=== PATIENT | female | born 2000 | race African-American/Black ===

== ENCOUNTER 2020-03-22 23:30 | Observation (INO) | payer MEDICAID ==
[~2020-03-22] VITALS: Ht 162.6 cm; Wt 68.5 kg
[2020-03-23 01:27] LABS: CLARITY URINE CLEAR (CLEAR); COLOR URINE YELLOW (YELLOW); KETONES URINE TRACE (NEGATIVE); LEUKOCYTE ESTERASE URINE NEGATIVE (NEGATIVE); NITRITE URINE NEGATIVE (NEGATIVE); OCCULT BLOOD URINE NEGATIVE (NEGATIVE); PH URINE 7.5 (4.5-8.0); PROTEIN URINE 2+ (NEGATIVE); SPECIFIC GRAVITY URINE 1.014 (1.005-1.030)
[2020-03-23] MEDS: LACTATED RINGERS 1,000 ML IV SCH ×2 (01:42→05:04)
[2020-03-23] MEDS ORDERED: FOLIC ACID (01:48)
[2020-03-23] MEDS ORDERED: PREN1TAB78 PO (01:48)
[2020-03-23] MEDS ORDERED: FERR325T6 PO (01:48)
[2020-03-23] MEDS ORDERED: BETAMETHASONE ACET/BETAMET 30 MG/5 ML VIAL IM ONE (02:15)
[2020-03-23] MEDS ORDERED: TERBUTALINE SULFATE 1MG/ML VIAL SUBCUT ONE (02:15)
[2020-03-23] MEDS ORDERED: ACETAMINOPHEN 500MG TABLET PO SCH (04:30)
[2020-03-23 05:16] LABS: *AMPHETAMINES SCREEN URINE NEGATIVE (NEGATIVE); *BARBITURATES SCREEN URINE NEGATIVE (NEGATIVE)
[2020-03-23 05:18] LABS: *BENZODIAZEPINES SCREEN URINE NEGATIVE (NEGATIVE); *COCAINE SCREEN URINE NEGATIVE (NEGATIVE); METHADONE URINE SCREEN NEGATIVE (NEGATIVE); OPIATES URINE SCREEN NEGATIVE (NEGATIVE); PHENCYCLIDINE URINE SCREEN NEGATIVE (NEGATIVE)
[2020-03-23 05:21] LABS: CANNABINOID URINE SCREEN PRESUMTIVE POSITIVE (NEGATIVE)
== END 2020-03-23 07:21 | disposition home or self-care (01) ==
LOC: 8 EST LDRP 23:30
PROVIDERS: ADMIT Obstetrics & Gynecology; ATTEND Obstetrics & Gynecology
DX: O60.03 Preterm labor without delivery, third trimester (principal); Z3A.30 30 weeks gestation of pregnancy; Z79.899 Other long term (current) drug therapy
CPT/HCPCS: 76805; 76818; 80305; 80349; 81003; 96360; 96361; 96372; 99281; G0378; J0702; J3105